=== PATIENT | male | born 1955 | race Caucasian/White ===

== ENCOUNTER 2017-07-16 15:59 | Emergency (ER) | payer SELFPAY ==
[~2017-07-16] VITALS: Ht 170.2 cm; Wt 74.8 kg
[2017-07-16] MEDS ORDERED: NO HOME MEDICATION XX (16:18)
[2017-07-16] MEDS ORDERED: NORCO 5-325 TA1 EACH PO (17:21)
== END 2017-07-16 17:25 ==
LOC: EDMED 15:59
DX: M25.552 Pain in left hip (principal)
CPT/HCPCS: J1170